=== PATIENT | female | born 1995 | race African-American/Black ===

== ENCOUNTER 2017-01-15 23:54 | Emergency (ER) | payer MEDICAID ==
[~2017-01-15] VITALS: Ht 152.4 cm; Wt 67.1 kg
[~2017-01-15 23:54] MED LIST: ACE325RS PR; PREN-96 PO
[2017-01-16 00:14] VITALS: BP 152/73
== END 2017-01-16 01:59 | disposition home or self-care (01) ==
LOC: ER 23:54
DX: J03.90 Acute tonsillitis, unspecified (principal); Z88.2 Allergy status to sulfonamides; Z91.09 Other allergy status, other than to drugs and biological substances

== ENCOUNTER 2017-02-14 11:49 | Emergency (ER) | payer MEDICAID ==
[~2017-02-14] VITALS: Ht 152.4 cm; Wt 62.6 kg
[2017-02-14 12:23] VITALS: BP 144/84
[2017-02-14] MEDS ORDERED: LIDOCAINE 1% HCL (LOCAL ANESTH.) INJ 20ML MDV ONE (12:28)
[2017-02-14] MEDS ORDERED: cefTRIAXone SOD 1,000 MG VL IM ONE (12:30)
== END 2017-02-14 13:02 | disposition home or self-care (01) ==
LOC: ER 11:49
DX: J02.9 Acute pharyngitis, unspecified (principal); Z88.8 Allergy status to other drugs, medicaments and biological substances; Z88.1 Allergy status to other antibiotic agents; Z79.899 Other long term (current) drug therapy
CPT/HCPCS: 96372; 99283; J0696; J2001

== ENCOUNTER 2017-09-05 21:52 | Emergency (ER) | payer MEDICAID ==
[~2017-09-05] VITALS: Ht 152.4 cm; Wt 67.6 kg
[2017-09-05 22:05] VITALS: BP 117/76
[2017-09-06] MEDS ORDERED: BACLOFEN 10 MG TAB PO ONE (03:15)
[2017-09-06] MEDS ORDERED: IBUPROFEN 600 MG TAB PO ONE (03:15)
== END 2017-09-06 03:30 | disposition home or self-care (01) ==
LOC: ER 21:52
DX: R51 Headache (principal); F17.210 Nicotine dependence, cigarettes, uncomplicated
CPT/HCPCS: 70450

== ENCOUNTER 2020-02-18 20:55 | Emergency (ER) | payer SELFPAY ==
[~2020-02-18] VITALS: Ht 152.4 cm; Wt 71.7 kg
[2020-02-18] MEDS ORDERED: ONDANSETRON ODT 4 MG TAB PO ONE (22:45)
[2020-02-18] MEDS ORDERED: KETOROLAC TROMETH 60MG/2ML VIAL IM ONE (22:45)
[2020-02-18 23:24] VITALS: BP 122/72
== END 2020-02-18 23:58 | disposition home or self-care (01) ==
LOC: ER 20:55
DX: S06.0X0A Concussion without loss of consciousness, initial encounter (principal); R11.0 Nausea; F17.210 Nicotine dependence, cigarettes, uncomplicated; Z88.2 Allergy status to sulfonamides; Z79.899 Other long term (current) drug therapy; W22.8XXA Striking against or struck by other objects, initial encounter; Y93.89 Activity, other specified; Y92.89 Other specified places as the place of occurrence of the external cause; Y99.8 Other external cause status
CPT/HCPCS: 70450; 96372; 99284; J1885; Q0162

== ENCOUNTER 2021-10-15 10:28 | Emergency (ER) | payer MEDICAID ==
[~2021-10-15] VITALS: Ht 152.4 cm; Wt 68.0 kg
[2021-10-15 11:45] LABS: Basophils # (auto) 0.1 10 ^3/uL (0-0.2); Basophils % (auto) 1.4 % (0.0-2.0); Eosinophils # (auto) 0 10 ^3/uL (0-0.8); Eosinophils % (auto) 1.2 % (0.0-7.0); Hematocrit 38.2 % (36.0-46.0); Hemoglobin 12.6 g/dL (12.2-16.2); Lymphocytes # (auto) 1.3 10 ^3/uL (0.4-5.4); Lymphocytes % (auto) 33.6 % (10.0-50.0); Mean Corpuscular Hemoglobin 31.2 pg (28.0-32.0); Mean Corpuscular Hgb Conc. 32.9 g/dL (32.0-36.0); Mean Corpuscular Volume 94.7 fL (80.0-100.0); Monocytes # (auto) 0.2 10 ^3/uL (0-1.3); Monocytes % (auto) 5.8 % (0.0-12.0); Neutrophils # (auto) 2.2 10 ^3/uL (1.6-8.6); Nucleated Red Blood Cells % 0.2 %; Red Blood Cells 4.03 10^6/uL (4.0-5.20); White Blood Cell 3.8 10^3/uL (4.4-10.8)
[2021-10-15 11:53] LABS: Albumin 3.9 g/dL (3.4-5.0); BUN/Creatinine Ratio 15.1; Calcium 9.1 mg/dL (8.5-10.1); Potassium 4.3 mmol/L (3.5-5.1)
[2021-10-15 12:16] LABS: Bilirubin, Total 0.3 mg/dL (0.2-1.0); Total Protein 8.2 g/dL (6.4-8.2)
[2021-10-15 14:00] VITALS: BP 122/78
== END 2021-10-15 14:35 | disposition home or self-care (01) ==
LOC: ER 10:28
DX: R00.2 Palpitations (principal); F17.210 Nicotine dependence, cigarettes, uncomplicated; Z88.2 Allergy status to sulfonamides; Z32.02 Encounter for pregnancy test, result negative
CPT/HCPCS: 36415; 71045; 80053; 81025; 84484; 85025; 85379; 93005

== ENCOUNTER 2023-01-05 14:47 | Emergency (ER) | payer MEDICAID ==
[~2023-01-05] VITALS: Ht 152.4 cm; Wt 77.7 kg
[2023-01-05 15:15] VITALS: BP 120/83
[2023-01-05 17:57] LABS: Basophils # (auto) 0 10 ^3/uL (0-0.2); Basophils % (auto) 0.8 % (0.0-2.0); Eosinophils # (auto) 0 10 ^3/uL (0-0.8); Eosinophils % (auto) 1.1 % (0.0-7.0); Hematocrit 38.2 % (36.0-46.0); Hemoglobin 13.2 g/dL (12.2-16.2); Lymphocytes # (auto) 1.8 10 ^3/uL (0.4-5.4); Lymphocytes % (auto) 45.6 % (10.0-50.0); Mean Corpuscular Hemoglobin 32.4 pg (28.0-32.0); Mean Corpuscular Hgb Conc. 34.5 g/dL (32.0-36.0); Monocytes # (auto) 0.3 10 ^3/uL (0-1.3); Monocytes % (auto) 7.7 % (0.0-12.0); Neutrophils # (auto) 1.7 10 ^3/uL (1.6-8.6); Neutrophils % (auto) 44.8 % (37.0-80.0); Nucleated Red Blood Cells % 0.2 %; Red Blood Cells 4.06 10^6/uL (4.0-5.20); Red Cell Distribution Width 12.7 % (11.8-14.3); White Blood Cell 3.9 10^3/uL (4.4-10.8)
[2023-01-05] MEDS ORDERED: ACETAMINOPHEN/CODEINE#3 (300/30mg) TAB PO ONE (18:00)
[2023-01-05 18:22] LABS: Albumin 4.2 g/dL (3.4-5.0); Calcium 9.1 mg/dL (8.5-10.1); Potassium 4.5 mmol/L (3.5-5.1)
[2023-01-05 18:27] LABS: BUN/Creatinine Ratio 16.3 (10.0-20.0); Bilirubin, Total 0.2 mg/dL (0.2-1.0); Total Protein 8.3 g/dL (6.4-8.2)
[2023-01-05 18:55] LABS: Urine Bacteria NONE SEEN /hpf (None Seen); Urine Blood 2+ /uL (Negative); Urine WBC 1 /hpf (0 - 5)
[2023-01-05] MEDS ORDERED: IBUP800T26 PO (23:24)
== END 2023-01-06 01:06 | disposition home or self-care (01) ==
LOC: ER 14:47
DX: S39.011A Strain of muscle, fascia and tendon of abdomen, initial encounter (principal); Z88.2 Allergy status to sulfonamides; X58.XXXA Exposure to other specified factors, initial encounter; Y93.89 Activity, other specified; Y92.89 Other specified places as the place of occurrence of the external cause; Y99.8 Other external cause status
CPT/HCPCS: 36415; 74176; 80053; 81001; 81025; 85025